=== PATIENT | female | born 1965 | race Caucasian/White ===

== ENCOUNTER 2017-12-03 20:10 | Emergency (ER) | payer OTHER, SELFPAY ==
[2017-12-03 20:11] VITALS: BP 138/72; PULSE 97; RESP 17; TEMP 36.9; O2SAT 100; BMI 31.1
--- NOTE | 2017-12-03 20:50 | ED.DEP ---
ED Disposition - Plan for ED Patient: Disposition: Home or Assisted Living Chief Complaint: Lower Extremity Injury Instructions: ED Sprain Knee Referrals: Rhett Bautista III, MD [Primary Care Provider] - 5-7 Days
[2017-12-03] MEDS: Rivaroxaban 15 MG Tablet PO (21:02)
[2017-12-03] MEDS: Naproxen 500 MG Tablet PO (21:09)
--- NOTE | 2017-12-03 21:10 | ED.RN ---
SPOKE TO PAULO THE PHARMICIST AND HE ADVISED AGAINST THE NAPROSYN,TOUCHED BASE WITH DR FLORENCE AND SHE STATED OK TO GIVE SINCE PT IS HAVING A ONE TIME DOSE OF XARELTO AND ONE TIME DOSE OF NAPROSYN.PT ADVISED TO STAY ADVOID NSAIDS UNTIL ULTRASOUND AND DISCUSSED WITH .
[2017-12-03 21:13] VITALS: BP 147/85; PULSE 78; RESP 18; O2SAT 96
--- NOTE | 2017-12-03 23:48 | ED.DCSUM_ITS ---
- ER Visit Summary Date of Service: 12/03/17 Chief Complaint: Left knee pain and swelling History of Present Illness: The patient is a 52 F reports a four-day history of pain along the medial portion of her left knee and distal medial thigh. Patient denies any known injury. Pain is progressively worsened. She does feel like she has some swelling. There has been no erythema or warmth. Is taking Aleve at home for pain. She is concerned for blood clot. She has no DVT or PE risk factors. She denies chest pain or shortness of breath. She does report a similar episode occurring in the past that seemed to spontaneously improve. Physical Examination: Vital signs are unremarkable. Patient sitting upright in bed no acute distress. She is alert and conversant. Head neck examination is unremarkable. Heart is regular rate and rhythm. Lung sounds are clear. Abdomen is soft and nontender. Left lower extremity examination reveals tenderness of the medial portion of the left knee with mild edema. There are no palpable cords. She has no erythema or warmth. She has increased pain when she attempts to fully extend her knee. She has strong distal pulses with normal sensation. There is no significant calf edema. Test Results: [] Emergency Department Course and Treatment: Patient presented on a Monday evening when I do not have vascular ultrasound available. This was discussed with her and her . There has been no known injury and we agree that x- rays will not be of significant benefit. Patient is given a dose of Naprosyn and a single dose of Xarelto here. She is ordered an outpatient venous ultrasound to be performed tomorrow. Treatment Plan: [] Disposition: Discharge Impression: Left knee pain, uncertain etiology This note was generated with [employer] dictation software. It may contain incorrect words, spelling, and punctuation that were not noted in review of the chart prior to signing ED Disposition - Plan for ED Patient: Disposition: Home or Assisted Living Chief Complaint: Lower Extremity Injury Instructions: ED Sprain Knee Referrals: Rhett Bautista III, MD [Primary Care Provider] - 5-7 Days
== END 2017-12-03 21:19 | disposition home or self-care (01) ==
PROVIDERS: Emergency Provider Emergency Medicine; Family Provider Family Medicine; PCP Family Medicine
DX: M25.562 Pain in left knee (principal); Z72.0 Tobacco use
CPT/HCPCS: 99283

== ENCOUNTER → 2017-12-04 11:05 | Outpatient (CLI) | payer OTHER, SELFPAY ==
--- NOTE | 2017-12-04 11:09 | VDLE_ITS ---
Reason For Study: LEG PAIN RIGHT LEFT CFV is compressible, spontaneous, phasic, GSV is normal. competent and demonstrates normal CFV is compressible, spontaneous, phasic, augmentation. competent, and demonstrates normal Procedure augmentation. Exam performed in department. FV is compressible, spontaneous, phasic, A preliminary report was called and/or faxed competent and demonstrates normal to Dr. Dilshad Bautista. augmentation. POP V is compressible, spontaneous, phasic, competent and demonstrates normal augmentation. T/P Trunk is compressible. PTV is compressible. LT PerV is compressible. Interpretation Summary There is no evidence of left lower extremity deep vein thrombosis. Left greater saphenous vein appears patent and compressible segmentally. Normal flow patterns right common femoral vein. Ordering Physician: Tamia Zaman Referring Physician: YUE Bautista M.D. Performed By: Rachael Kearney RVT
== END ==
PROVIDERS: Family Provider Family Medicine; PCP Family Medicine; Visit Provider Emergency Medicine
DX: M79.605 Pain in left leg (principal)
CPT/HCPCS: 93971

== ENCOUNTER → 2020-02-21 | Outpatient (CLI) | payer OTHER, SELFPAY ==
--- NOTE | 2020-02-21 | ASPS_PTH ---
PATIENT: KUMAR JAMES LOC: [facility] U#:[id number] AGE/SX: 54/F ROOM: RE02/21/[address]: Dr. Reji Bautista MD : 1965 BED: DIS: 02/21/2020 SPEC #: [id number] RECD: 02/21/20 16:36 STATUS: SANTIAGO TOÑITO #: [id number] ALYSON: 02/21/20 00:[address]: Reji Bautista DEPT: CYTOLOGY RECD BY: Ye Jenkins ENTERED: 02/24/20 09:36 SP TYPE: ASPIRATION OTHR DR: Dr. Rhett Bautista III, MD Tissues: A - Thyroid gland, NOS B - Thyroid gland, NOS Procedures: Special Stain Group II Cytology Other HEADER OPERATION: Ultrasound-guided fine needle aspiration of isthmus and left thyroid PRE-OP DIAGNOSIS: Multinodular goiter TISSUE SUBMITTED: A - Fine needle aspiration of isthmus 6 slides, B - Fine needle aspiration of left thyroid 6 slides DIAGNOSIS CYTOLOGY A. Fine needle aspiration, thyroid isthmus (smears): Adequate for evaluation. Negative, consistent with benign follicular nodule. B. Fine needle aspiration, left thyroid nodule (smears): Adequate for evaluation. Negative, consistent with benign follicular/colloid nodule. AM:demetri 02/25/20 CYTOLOGY STUDY Slides are reviewed. CYTOLOGY GROSS A - Received are six smears labeled with the patient's name and designated per the requisition as isthmus. Submitted for staining. B - Received are six smears labeled with the patient's name and designated per the requisition as left thyroid. Submitted for staining. / demetri 02/24/20 TC:5 CPT: 18937 x2
[2020-02-21 14:33] VITALS: BMI 31.1
== END | disposition home or self-care (01) ==
LOC: LABSPEC 17:11
PROVIDERS: PCP Family Medicine; Referring Provider Surgery; Visit Provider Surgery
DX: E04.2 Nontoxic multinodular goiter (principal)
CPT/HCPCS: 88161; 88313

== ENCOUNTER → 2020-03-06 07:44 | Outpatient (CLI) | payer OTHER, SELFPAY ==
[2020-02-21 14:33] VITALS: BMI 31.1
[2020-03-06 08:25] LABS: T3 Uptake 34 % (30-39); T4 Free Direct 1.22 ng/dL (0.76-1.46); T4 Total, Thyroxin 11.7 ug/dL (4.8-13.9)
== END ==
PROVIDERS: PCP Family Medicine; Referring Provider Surgery; Visit Provider Surgery
DX: E04.2 Nontoxic multinodular goiter (principal); E07.9 Disorder of thyroid, unspecified
CPT/HCPCS: 36415; 84436; 84439; 84479

== ENCOUNTER 2020-11-21 07:57 | Emergency (ER) | payer OTHER, SELFPAY ==
[2020-06-25 08:14] VITALS: BMI 34.4
[2020-11-21 07:58] VITALS: BP 130/69; PULSE 94; RESP 16; TEMP 36.1; O2SAT 98; BMI 82.9
--- NOTE | 2020-11-21 08:07 | ED.DCSUM_ITS ---
History of Present Illness Chief Complaint: Lower Extremity Injury Informant: Patient Narrative: 54-year-old female presenting with right foot pain. She states that on the dorsum of her right foot and radiating to the great toe. She states yesterday she stepped up a curb when the pain started. She denies any direct trauma. She did not feel a pop or click. She is ambulatory but bearing weight on the outside of her foot. Denies any ankle pain. Past Medical History - Allergies and Home Meds Allergies/Adverse Reactions: Allergies codeine Allergy (Verified 06/25/20 08:15) Other prednisone Adverse Reaction (Verified 11/21/20 08:02) Vomiting Primary Care Physician: Rhett Bautista III, MD [Primary Care Provider] - Prior records reviewed: Yes Past Medical History: - - Anxiety, hyperlipidemia Surgical History: noncontributory Lives: Spouse/ Significant Other Smoking Status: Current every day smoker Alcohol: None Drugs: None Review of Systems General: Denies: Chills, Fever, Sweats Eyes: Denies: Visual changes - bilaterally, Diplopia ENT: Denies: Rhinorrhea, Sore throat Cardiovascular: Denies: Chest pain, Palpitations Respiratory: Denies: Dyspnea, Cough, Dyspnea on exertion Gastrointestinal: Denies: Abdominal pain, Nausea, Vomiting, Diarrhea, Melena, Hematochezia Genitourinary: Denies: Dysuria, Hematuria, Frequency Musculoskeletal: Reports: Extremity Pain - Right foot pain. Denies: Back pain Skin: Denies: Rash, Wounds Neurological: Denies: Headache, Weakness, Numbness Physical Exam Vital Signs/Narrative: Vital Signs Temp Pulse Resp BP Pulse Ox 11/21/20 07:58 96.9 F L 94 16 130/69 H 98 General: Well nourished, No Acute Distress Head: Normocephalic, Atraumatic Eyes: Perrl, EOMI ENT: Moist mucous membranes, No rhinorrhea Cardiovascular: Regular rate, Regular rhythm Respiratory: No distress, CTA bilaterally Extremities: No edema, - - Tenderness to palpation over dorsum of right foot samantha trally with tenderness into the right great toe. There is no obvious deformity. Right foot neurovascular intact brisk cap refill to all 5 toes. Skin: Negative for: Normal color, No rash Neurological: Alert, Oriented x3 Psychological: Normal affect, Normal Mood Diagnostic/Tx/Re-eval - Medical Decision Making Patient presenting with right foot pain after stepping up a curb. There is tenderness to palpation however on exam there is no deformities. Right foot is neurovascular intact. Three-view x-rays of the right foot show no acute fracture or subluxation. Patient counseled on findings. Patient states that she feels nauseous from the level of pain she is having. She initially did not want anything for pain because she states that anything stronger than Tylenol ibuprofen make her nauseous. After discussion she is willing to try tramadol and Zofran. She will be given a prescription for these. Patient placed in Julian wrap. Patient counseled she can still use NSAIDs if she does not like the tramadol. Patient safe for discharge. Impression: 1. Right foot sprain ED Disposition - Plan for ED Patient: Instructions: ED Foot Sprain Prescriptions: Ondansetron [Ondansetron Odt] 4 mg PO Q8H PRN PRN #12 tab.rapdis PRN Reason: Nausea Prescription Printed Tramadol HCl [Ultram] 50 mg PO Q6H PRN PRN 3 Days #12 tab PRN Reason: Pain Prescription Printed Referrals: Rhett Bautista III, MD [Primary Care Provider] -
--- NOTE | 2020-11-21 08:10 | RAD_ITS ---
STUDY: X-RAY - RIGHT FOOT CLINICAL: Female, 54 years old. foot pain TECHNIQUE: 3 view(s) of the foot. COMPARISON: None. FINDINGS: Normal talus, calcaneus, and tarsal bones. Small plantar posterior calcaneal enthesophytes. Normal visualized subtalar, talonavicular, calcaneocuboid, tarsal and tarsometatarsal articulations. Normal metatarsi. There is degenerative arthrosis of the metatarsophalangeal joint of the hallux with a hallux valgus deformity. Normal tibial and fibular sesamoid bones. Normal interphalangeal joint of the great toe. Normal phalanges of the great toe. Normal second through fifth metatarsophalangeal joints. Normal interphalangeal joints and phalanges of the lesser toes. The soft tissue structures are unremarkable. RAD/Foot min 3 Views IMPRESSION: 1. No acute fracture or dislocation. 2. Mild hallux valgus deformity. Electronically Signed: Markell Wilkerson MD at 9:00 EST Tel , Service support ,
[2020-11-21] MEDS: traMADol 50 MG Tablet PO (09:32)
[2020-11-21] MEDS: Ondansetron ODT 4 MG Tablet PO (09:32)
== END 2020-11-21 10:08 | disposition home or self-care (01) ==
PROVIDERS: Emergency Provider Student in an Organized Health Care Education/Training Program; PCP Family Medicine
DX: S93.601A Unspecified sprain of right foot, initial encounter (principal); X58.XXXA Exposure to other specified factors, initial encounter; Y93.9 Activity, unspecified; Y92.9 Unspecified place or not applicable; Y99.9 Unspecified external cause status; E78.5 Hyperlipidemia, unspecified; F41.9 Anxiety disorder, unspecified; F17.200 Nicotine dependence, unspecified, uncomplicated; Z79.82 Long term (current) use of aspirin; Z79.899 Other long term (current) drug therapy
CPT/HCPCS: 73630; 99284